=== PATIENT | female | born 1975 | race African-American/Black ===

== ENCOUNTER 2024-02-12 02:54 | Emergency (ER) | payer SELFPAY ==
[~2024-02-12] VITALS: Ht 157.5 cm; Wt 82.0 kg
[2024-02-12 03:03] VITALS: O2SAT 100
[2024-02-12 04:05] LABS: BASOPHILS % 0.9 % (0.0-2.0); EOSINOPHILS % 0.8 % (0.0-5.0); HEMATOCRIT. 39.8 % (36.0-48.0); HEMOGLOBIN. 12.8 g/dL (12.0-16.0); LYMPHOCYTES % 38.1 % (20.0-50.0); MEAN CORPUSCULAR HEMOGLOBIN 27.3 pg (28.0-32.0); MEAN CORPUSCULAR HGB CONC 32.1 g/dL (31.0-37.0); MEAN CORPUSCULAR VOLUME 85.1 fL (81.0-99.0); MEAN PLATELET VOLUME 8.6 fl (7.4-10.4); MONOCYTES % 5.8 % (2.0-8.0); NEUTROPHILS % 54.4 % (40.0-76.0); PLATELET 260 x1000/uL (130-400); RED BLOOD CELL COUNT 4.68 mill/uL (4.2-5.4); RED CELL DISTRIBUTION WIDTH 14.4 % (11.6-14.6); WHITE BLOOD COUNT 6.3 x1000/uL (4.5-11.0)
[2024-02-12 04:35] LABS: AMMONIA < 17 uMol/L (<32)
[2024-02-12 04:36] LABS: ACETAMINOPHEN < 2 ug/mL (10-30); ALANINE AMINOTRANSFERASE 22 IU/L (10-49); ASPARTATE AMINOTRANSFERASE 24 IU/L (<34); BILIRUBIN TOTAL 0.4 mg/dL (0.1-1.0); CALCIUM 9.3 mg/dL (8.7-10.4); CARBON DIOXIDE 28 mEq/L (21-32); CHLORIDE 110 mEq/L (98-107); CREATINE KINASE 699 IU/L (34-145); CREATININE 0.8 mg/dL (0.6-1.0); ETHANOL BLOOD < 10 mg/dL (<10); GLUCOSE 82 mg/dL (70-105); POTASSIUM 3.6 mEq/L (3.5-5.1); PROTEIN TOTAL 7.9 g/dL (6.0-8.3); SODIUM 143 mEq/L (136-145); UREA NITROGEN BLOOD 17 mg/dL (9-23)
[2024-02-12] MEDS: SODIUM CHLORIDE 0.9% 1,000 ML IV ONE (05:18)
[2024-02-12 09:51] VITALS: BP 128/94; PULSE 77; RESP 16; TEMP 98.1
== END 2024-02-12 14:59 | disposition home or self-care (01) ==
LOC: EDBD 02:54 → ER 02:54
DX: F29 Unspecified psychosis not due to a substance or known physiological condition (principal); E86.0 Dehydration
CPT/HCPCS: 80053; 80307; 80329; 80320; 82140; 82550; 83605; 83690; 85025; 36415; 70450; 96360; 96361; 99284; Z7610 ×2; G0480

== ENCOUNTER 2024-03-01 17:05 | Emergency (ER) | payer MEDICAID ==
[~2024-03-01] VITALS: Ht 167.6 cm; Wt 73.0 kg
[2024-03-01 17:06] VITALS: O2SAT 98
[2024-03-01 21:00] VITALS: BP 129/78; PULSE 78; RESP 20; TEMP 98.1
== END 2024-03-01 19:57 | disposition home or self-care (01) ==
LOC: ER 17:05
DX: R56.9 Unspecified convulsions (principal); F17.200 Nicotine dependence, unspecified, uncomplicated; M54.30 Sciatica, unspecified side
CPT/HCPCS: 99283; Z7610